=== PATIENT | male | born 1925 | race Caucasian/White ===

== ENCOUNTER → 2016-06-01 | Outpatient (CLI) | payer MEDICARE, BC | END | disposition home or self-care (01) | LOC: HKI 13:49 | PROVIDERS: ATTEND Orthopaedic Surgery | DX: M17.0 Bilateral primary osteoarthritis of knee (principal); Z85.118 Personal history of other malignant neoplasm of bronchus and lung | CPT/HCPCS: G0463 ==

== ENCOUNTER 2016-08-10 13:49 | Inpatient (IN) | payer MEDICARE, BC ==
[~2016-08-10] VITALS: Ht 162.6 cm; Wt 74.0 kg
[2016-08-16] VITALS (20 sets, daily range): BP systolic 118–142; BP diastolic 29–65; PULSE 54–82; RESP 9–20; Ht 162.6 cm; Wt 74.0 kg
[2016-08-16] MEDS ORDERED: CEFAZOLIN 2GM/50 ML (PMX) 50 ML X1 BEFORE INCISION IVPB SCH (07:00)
[2016-08-16] MEDS ORDERED: EXPAREL NOTE (BUPIVICAINE LIPOSOMAL) XX SCH (07:00)
[2016-08-16] MEDS ORDERED: CELECOXIB 400 MG PO X1 DOSE PO SCH (07:00)
[2016-08-16] MEDS ORDERED: LACTATED RINGER'S 1,000 ML IV SCH (07:00)
[2016-08-16] MEDS ORDERED: PAIN COCKTAIL-CEFUROXIME IRR ONE ×7 (07:00)
[2016-08-16] MEDS ORDERED: PREGABALIN 300 MG PO X1 PO SCH (07:00)
[2016-08-16] MEDS ORDERED: BUPIVACAINE LIPOSOME/PF 266 MG/20 ML VIAL INFIL SCH (07:00)
[2016-08-16] MEDS ORDERED: SOD CHLORIDE 0.9% IV SCH (07:00)
[2016-08-16] MEDS ORDERED: TRANEXAMIC ACID IV SCH (07:00)
[2016-08-16] MEDS ORDERED: oxyCODONE (CR) 10 MG TAB [oxyCONTIN] X1 DOSE PO SCH (07:00)
[2016-08-16] MEDS ORDERED: LIDOCAINE 2% (SDV) 5 ML INJ ONE (07:00)
[2016-08-16] MEDS ORDERED: TRANEXAMIC ACID 720 MG in SOD CHLORIDE 0.9% 100 ML IVPB SCH (07:00)
[2016-08-16] MEDS ORDERED: traMADOL 50 MG TAB X 1 DOSE PO SCH (07:00)
[2016-08-16] MEDS ORDERED: PRED12OP5 LEFT EYE (10:50)
[2016-08-16] MEDS ORDERED: ASPI-664 PO (10:51)
[2016-08-16] MEDS ORDERED: SIMV10TA PO (10:56)
[2016-08-16] MEDS ORDERED: LOSA1TAB19 PO (10:56)
[2016-08-16] MEDS ORDERED: DEXAMETHASONE 4 MG/ML 1 ML INJ ONE (11:39)
[2016-08-16] MEDS ORDERED: GLYCOPYRROLATE 0.4 MG INJ ONE (11:39)
[2016-08-16] MEDS ORDERED: ROCURONIUM 50 MG INJ ONE (11:39)
[2016-08-16] MEDS ORDERED: FENTAnyl 50 MCG/ML VIAL ONE (11:39)
[2016-08-16] MEDS ORDERED: MIDAZOLAM 1 MG/ML 2 ML INJ ONE (11:39)
[2016-08-16] MEDS ORDERED: CEFAZOLIN 1 GM INJ ONE (11:39)
[2016-08-16] MEDS ORDERED: PROPOFOL 20 ML ONE (11:39)
[2016-08-16] MEDS ORDERED: ONDANSETRON 4 MG INJ ONE (11:39)
[2016-08-16] MEDS ORDERED: NEOSTIGMINE 3 MG/3 ML SYRINGE ONE (11:39)
[2016-08-16] MEDS: traMADol 50 MG TAB PO SCH ×2 (12:00→20:49)
--- NOTE | 2016-08-16 13:06 | HPN ---
Date/Time of Note Date/Time of Note DATE: 08/16/16 TIME: 13:06 Interval H&P Admission Note Pt. seen H&P reviewed: No system changes No changes from H&P on 08/09/16 by EPIFANIO Martinez MD Aug 16, 2016 13:06
[2016-08-16] MEDS ORDERED: POLYMYXIN B 500000 UNIT INJ ONE (13:15)
[2016-08-16] MEDS ORDERED: ETOMIDATE 20 MG INJ ONE (14:16)
[2016-08-16] MEDS ORDERED: PROPOFOL 100 ML ONE (14:16)
[2016-08-16] MEDS ORDERED: EPHEDrine SULFATE 50 MG/5 ML SYG IV PRN (14:30)
[2016-08-16] MEDS ORDERED: DIPHENHYDRAMINE 50 MG INJ IV PRN (14:30)
[2016-08-16] MEDS ORDERED: ONDANSETRON 4 MG INJ IV PRN ×2 (14:30→16:00)
[2016-08-16] MEDS ORDERED: HYDROmorphONE (0.2 MG/ML) 10ML SYG IV PRN ×3 (14:30)
[2016-08-16] MEDS ORDERED: MIDAZOLAM 1 MG/ML 2 ML INJ IV PRN (14:30)
[2016-08-16] MEDS ORDERED: TRIMETHOBENZAMIDE 100 MG/ML VIAL IM PRN (14:30)
[2016-08-16] MEDS ORDERED: hydrALAzine 20 MG INJ IV PRN (14:30)
[2016-08-16] MEDS ORDERED: FENTAnyl 50 MCG/ML VIAL IV PRN ×3 (14:30)
[2016-08-16] MEDS ORDERED: LABETALOL HCL 20MG INJ IV PRN (14:30)
[2016-08-16] MEDS ORDERED: MEPERIDINE 25 MG INJ IV PRN (14:30)
[2016-08-16] MEDS ORDERED: BACITRACIN 50000 UNITS INJ IRR ONE (14:31)
[2016-08-16] MEDS: VANCOMYCIN 1 GM INJ ONE ×2 (14:31→14:32)
[2016-08-16] MEDS ORDERED: BACITRACIN 50000 UNITS INJ ONE (14:55)
[2016-08-16] MEDS ORDERED: NA PHOSPHATE/BIPHOS 133 ML ENEMA PR PRN (16:00)
[2016-08-16] MEDS ORDERED: ASPIRIN (EC) 325 MG TAB PO ONE (16:00)
[2016-08-16] MEDS ORDERED: DIPHENHYDRAMINE 25 MG CAP PO PRN (16:00)
[2016-08-16] MEDS ORDERED: HYDROmorphONE 1 MG/ML SYG IV PRN (16:00)
[2016-08-16] MEDS ORDERED: HYDROCODONE/APAP (5/325) TAB PO PRN ×2 (16:00)
[2016-08-16] MEDS ORDERED: BISACODYL 10 MG SUPP PR PRN (16:00)
[2016-08-16] MEDS ORDERED: MAGNESIUM HYDROXIDE 30ML CUP PO PRN (16:00)
[2016-08-16] MEDS ORDERED: NACL 0.9% 3 ML SYG IV SCH (16:00)
--- NOTE | 2016-08-16 16:06 | PN ---
Date/Time of Note Date/Time of Note DATE: 08/16/16 TIME: 16:05 Assessment/Plan Lines/Catheters IV Catheter Type (from Nrsg): Peripheral IV Assessment/Plan Assessment/Plan Stable in PACU, s/p left TKA -cont abx -pain meds prn -ASA/SCDs -OOB with PT -check AM labs -monitor drain -d/c chopra in the AM XR of the left knee is pending at this time Subjective 24 Hr Interval Summary Stable in PACU. Moving all extremities. Denies any pain. Exam/Review of Systems Vital Signs Vitals Vital Signs Date Time Temp Pulse Resp B/P Pulse Ox O2 Delivery O2 Flow Rate FiO2 08/16/16 11:44 98.3 54 18 142/63 Room Air Intake and Output 08/15/16 08/15/16 08/16/16 15:00 23:00 07:00 Intake Total 0 ml Balance 0 ml Exam Free Text/Dictation Hemovac: minimal Dressing dry Incision clean, dry, and intact without redness or drainage Thigh soft 5/5 Quadriceps, Tibialis Anterior, EHL, Gastroc, Soleus, Peroneals Normal sensation Palpable DT/PT, CR <2 sec No distal edema TENA REIS PA-C Aug 16, 2016 16:06
--- NOTE | 2016-08-16 16:08 | OPR ---
Date/Time of Note Date/Time of Note DATE: 08/16/16 TIME: 16:07 Operative Report Free Text/Dictation Dictation # [id number] Procedure Date: Aug 16, 2016 Preoperative Diagnosis Left Knee OA Postoperative Diagnosis Same Operation Performed Left TKA Surgeon: EPIFANIO HANSEN MD budget assistant: TENA REIS PA-C Anesthesia: general, spinal Anesthesiologist: Rodrigo Pennington M.D. Tourniquet Time: 71 min Estimated Blood Loss: 50 - 100 ml's Specimens Bone and soft tissue Tubes/Drains Hemovac x 1 Complications: None Pt Condition Post Procedure: stable Disposition: PACU EPIFANIO HANSEN MD Aug 16, 2016 16:08
--- NOTE | 2016-08-16 16:25 | OPR ---
DATE OF OPERATION: 08/16/2016 PREOPERATIVE DIAGNOSIS: Left knee osteoarthritis. POSTOPERATIVE DIAGNOSIS: Left knee osteoarthritis. OPERATION PERFORMED: Left total knee arthroplasty. SURGEON: Epifanio Hansen MD RAILROAD OPERATOR: ALFREDO Kingsley COMPONENTS USED: DePuy Attune size 5 femoral component, size 6 tibial baseplate, 8 mm polyethylene insert, 35 patellar button. ANESTHESIA: Spinal plus general endotracheal intubation, plus periarticular injection. ANESTHESIOLOGIST: Rodrigo Pennington MD TOURNIQUET TIME: 71 minutes. ESTIMATED BLOOD LOSS: 50 mL. INTRAVENOUS FLUIDS: 2 liters of crystalloid. SPECIMENS: Bone and soft tissue. DRAINS: Hemovac x1. COMPLICATIONS: None. DISPOSITION: The patient tolerated the procedure well and was taken to the recovery room in stable condition. INDICATIONS: The patient is an 89-year-old gentleman who has had progressive worsening pain in the left knee with radiographic evidence of severe osteoarthritis. He has failed nonsurgical means of t reatment to control his pain including activity modifications, pain medications and ambulatory blair t devices. Despite these measures, he has had worsening pain and I felt he would benefit from a tot al knee arthroplasty. The risks, benefits, and alternatives of the procedure were explained in detail to the patient. I e xplained the risks of the surgery to include but not be limited to, bleeding and possible need for b lood transfusion; infection; pain; stiffness; neurovascular injury with possible numbness, weakness, and/or paralysis anywhere from the knee down to the toes; fracture; instability; dislocation; wear and/or loosening of the prosthesis and possible need for future revision; blood clots; pulmonary emb olism; and anesthetic complications such as heart attack, stroke, GI bleed, pneumonia, and/or . Ample time was allowed for the patient to ask questions, all of which were addressed and answered. The patient understood the risks involved and wished to proceed. Informed consent was signed prior to the procedure. PROCEDURE: The patient's left knee was initialed with a marking pen in the preoperative area to timi ntify the correct operative site. The patient was brought to the operating room and transferred fro [facility] to the operating table where a spinal anesthetic was administered. The patien t was then anesthetized and intubated. A Beltre catheter was placed. A timeout was performed to con firm that the left leg was the correct operative site. The patient was given 2 g of Ancef within one hour prior to the procedure. A tourniquet was placed on the operative proximal thigh. The operati ve knee and lower extremity were prepped and draped in the usual sterile fashion. The operative low er extremity was elevated and exsanguinated with an Esmarch tourniquet. The proximal thigh tourniqu et was inflated to 300 mmHg. The knee was flexed. A midline incision was made and carried down through the subcutaneous tissue a nd fat with sharp dissection. Limited medial and lateral flaps were raised. A median parapatellar arthrotomy approach was performed. Synovial fluid was normal in color and consistency. The patella was everted and the knee flexed. There were severe tricompartmental osteoarthritic changes noted. A medial release was performed at the joint line to the midcoronal plane. The ACL and PCL and remn ants of the menisci were excised. The OrthAlign navigation device was then pinned into place on the distal femur and set to 0 degrees of varus/valgus and 3 degrees of flexion. The distal cutting blo ck was pinned into place and the oscillating saw was used to make the cut. The tibia was subluxed anteriorly. The tibial OrthAlign navigation device was then pinned into plac e such that the proximal portion of the guide was centered over the junction of the medial and middl e third of the tibial tubercle with the proximal probe placed at the posterior aspect of the ACL anu tprint. The guide was then set to 0 degrees varus/valgus and 3 degrees of posterior slope. The cut ting block was then pinned into place and the oscillating saw was used to make the cut. The tibia w as sized. The extension gap was checked and accommodated the 8 mm spacer block with the knee in ful l extension. There was no varus or valgus instability. At this point, the femur was sized with the posterior referencing guide. Two holes were drilled in 3 degrees of external rotation. The two holes were in line with the transepicondylar axis, perpendi cular to [place]'s line, and in line with the tibial cutoff jig brought up with the knee flexed 90 degrees and tensed with 2 lamina spreaders, suggesting the femoral rotation was correct. The four- in-one cutting block was pinned into place. The anterior and posterior cuts and chamfer cuts were m you with the oscillating saw. The flexion gap was checked and accommodated the 8 mm spacer block at 90 degrees. There was no varus or valgus instability, suggesting the flexion and extension gaps wer e now equal. The central box was cut out on the femur. The tibia was drilled and punched in proper rotation. Tri al components were placed into position with a trial insert. The patella was cut from 25 mm down to 16 mm and sized. Three holes were drilled and the trial button placed in position. With all the t rials now in place, the knee was taken through range of motion and came to full extension as evidenc ed by the fact that with the foot on my abdomen and axial loading, there was no tendency for the kne e to flex. The knee was able to be flexed to 125 degrees with good patellar tracking with no latera l tilt or subluxation. At this point, I was satisfied with the overall range of motion, stability, and patellar tracking. The trials were removed. The real components were opened. Two bags of cement were mixed, one with and one without premixed antibiotic. The knee was irrigated with antibiotic saline and sucked dry. Once the cement was in a doughy stage, the real components were cemented into place. The knee was held in full extension, and the patellar component was held with a patellar clamp. All excess cemen t was removed with curettes. As the cement was hardening, the synovial/capsular layer was infiltrat ed with a mixture of 150 mg of 0.5% bupivacaine, 8 mg of Duramorph, 300 mcg of epinephrine, 30 mg of Toradol, 100 mcg of clonidine, 750 mg of cefuroxime and 86 mL of normal saline, followed by an inje ction of 266 mg of liposomal bupivacaine. A Hemovac drain was placed in the deep portion of the wound and brought out the anterolateral thigh. Once the cement was completely hardened, the trial liner was removed, and the real insert was open ed. The tourniquet was let down, and there was good hemostasis. The knee was then irrigated with a mixture of Betadine/saline and then antibiotic saline with pulsatile lavage. The real insert was i mpacted into the tibia and reduced onto to the femur. The arthrotomy was closed with a few interrupted #1 Ethibond in a [id number] fashion, and then closed in a watertight fashion with a running #2 Stratafix suture. Knee flexion was checked against gravity and came to 125 degrees. The subcutaneous layer was irrigated and closed with 2-0 Stratafi x, and then 3-0 Vicryl and then lety on the skin. The wound was covered with an occlusive dressi ng, and secured with cast padding and a bias dressing. The drain was secured with 3-0 nylon. The sponge and needle counts were correct at the end of the case. The patient was then awakened, ex tubated, and taken to the recovery room in stable condition. Dictated By: EPIFANIO HANSEN MD EZ/NTS Conf#: [id number] DID#: [id number]
--- NOTE | 2016-08-16 16:55 | CONS ---
DATE OF ADMISSION: 08/16/2016 DATE OF CONSULTATION: 08/16/2016 Thank you very much for allowing me to evaluate the above patient who is an 89-year-old male who und erwent a left total knee arthroplasty. HISTORICAL EVENTS: As you well know, this patient has had progressive disabling pain involving his left knee and for this recommended the above surgical intervention. Postoperatively, in recovery, h e is comfortable without cough, wheezing, shortness of breath, nausea, vomiting, abdominal or chest pain. PAST MEDICAL HISTORY: 1. Includes PAC. He is undergoing cardiology valve preop including a nuclear treadmill that reveal ed no ischemia. 2. History of cancer of the right lung. 3. Hyperlipidemia. 4. Hypertension. 5. History of anemia. 6. Mitral valve regurgitation. 7. Hypogonadism. 8. History of prostate cancer with prostatectomy. 9. History of corneal transplant. MEDICATIONS: 1. Losartan/hydrochlorothiazide 50/12.5 per day. 2. Simvastatin 10. 3. Aspirin 81 daily. SOCIAL HISTORY: He is a , has 3 children. He never smoked. Denies drinking. PHYSICAL EXAMINATION: GENERAL: [place] male in no acute distress. VITAL SIGNS: BP 122/80, pulse 70, respirations are 20. He was afebrile. EYES: Extraocular muscles were full. NOSE, MOUTH, AND THROAT: Normal. NECK: Supple. There was no jugular venous distention, thyroid enlargement or adenopathy. Carotids 2+. LUNGS: Clear. HEART: Rhythm regular. ABDOMEN: Nontender. Liver and spleen were not palpable. No masses or tenderness were noted. EXTREMITIES: No edema. Calves nontender. NEUROLOGIC: No lateralizing motor weakness. IMPRESSION: 1. Stable postoperative left total knee replacement. 2. History of hypertension. We will continue angiotensin receptor coral without diuretic and mon itor blood pressure throughout. 3. Will evaluate telltale ductus signs and symptoms of thromboembolic disease despite appropriate d eep venous thrombosis prophylaxis. 4. Hyperlipidemia, continue his statin. Dictated By: RAVI MUÑOZ/NTS Conf#: [id number] DID#: [id number]
[2016-08-16 17:02] LABS: CREATININE 1.08 mg/dl (0.61-1.24); POTASSIUM 3.6 mmol/L (3.5-5.1)
[2016-08-16 17:03] LABS: CALCIUM 8.3 mg/dl (8.4-10.2)
[2016-08-16] MEDS: CEFAZOLIN 2 GM/50 ML (PMX) 50 ML IVPB SCH (17:05)
--- NOTE | 2016-08-16 17:25 | RADRPT ---
PROCEDURE: Left knee x-ray CLINICAL INDICATION: PACU Post Op TECHNIQUE: Two views of the left knee were obtained. COMPARISON: None FINDINGS: The patient is status post total knee replacement . There are postsurgical changes in the subcutane ous soft tissues. There is a surgical drain in place. There is normal mineralization. No acute fracture or dislocation is seen. The femoral and of the femoral tibial and patellar components of the prosthesis are anatomically ali gned. There are vascular calcifications in the superficial femoral artery geovanna IMPRESSION: 1. Postsurgical changes of the knee status post knee replacement. 2. 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 RPTAT:AAJJ Physician Denisse Date Time Electronically viewed and signed by Physician Denisse on 08/16/2016 17:25 /
[2016-08-16 18:17] LABS: ADD UMIC YES; URINE BILIRUBIN (Dip) NEGATIVE (NEGATIVE); URINE BLOOD (Dip) TRACE (NEGATIVE); URINE COLOR LT. YELLOW (YELLOW); URINE GLUCOSE (Dip) NEGATIVE (NEGATIVE); URINE KETONES (Dip) NEGATIVE (NEGATIVE); URINE LEUKOCYTE ESTERASE (Dip) NEGATIVE (NEGATIVE); URINE NITRITE (Dip) NEGATIVE (NEGATIVE); URINE TOTAL PROTEIN (Dip) NEGATIVE (NEGATIVE); URINE UROBILINOGEN (Dip) 0.2 E.U./dL (0.1-1.0)
[2016-08-16 18:26] LABS: BACTERIA,URINE RARE; SQUAMOUS EPITHELIAL CELL,UR FEW
[2016-08-16] MEDS ORDERED: TRANEXAMIC ACID 740 MG in SOD CHLORIDE 0.9% 100 ML IVPB ONE ×2 (19:00→22:00)
[2016-08-16] MEDS: DOCUSATE SODIUM 100 MG CAP PO SCH (20:48)
[2016-08-16] MEDS: PANTOPRAZOLE (EC) 40 MG TAB PO SCH (20:48)
[2016-08-16] MEDS: PREGABALIN 50 MG CAP PO SCH (20:49)
[2016-08-16] MEDS: LACTATED RINGER'S 1,000 ML IV SCH (20:50)
[2016-08-17] MEDS: CEFAZOLIN 2 GM/50 ML (PMX) 50 ML IVPB SCH ×2 (00:20→08:42)
[2016-08-17 01:10] VITALS: BP 117/58; RESP 20
--- NOTE | 2016-08-17 02:32 | RADRPT ---
PROCEDURE: Fluoroscopy services. CLINICAL INDICATION: Left knee pain. TECHNIQUE: Fluoroscopy services during placement of left knee arthroplasty. COMPARISON: Left leg plain film series dated 08/10/2016. FINDINGS: Fluoroscopy services during placement of left knee arthroplasty. 4 intraoperative spot films were o btained at intermediate stages during this procedure and demonstrate arthroplasty in place. No fluoroscopy time data is provided. IMPRESSION: Fluoroscopy services during placement of left knee arthroplasty. RPTAT: UU Physician Emmett Date Time Electronically viewed and signed by Physician Emmett on 08/17/2016 02:32 RS/
[2016-08-17 05:00] VITALS: BP 106/53; PULSE 67; RESP 17
[2016-08-17 05:28] LABS: HEMATOCRIT 34.1 % (42.0-52.0); HEMOGLOBIN 11.3 g/dl (14.0-18.0)
[2016-08-17 05:36] LABS: POTASSIUM 4.3 mmol/L (3.5-5.1)
[2016-08-17 05:38] LABS: CREATININE 1.19 mg/dl (0.61-1.24)
[2016-08-17 06:14] LABS: ADD UMIC YES; URINE BILIRUBIN (Dip) NEGATIVE (NEGATIVE); URINE BLOOD (Dip) 3+ (NEGATIVE); URINE COLOR YELLOW (YELLOW); URINE GLUCOSE (Dip) NEGATIVE (NEGATIVE); URINE KETONES (Dip) NEGATIVE (NEGATIVE); URINE LEUKOCYTE ESTERASE (Dip) NEGATIVE (NEGATIVE); URINE NITRITE (Dip) NEGATIVE (NEGATIVE); URINE TOTAL PROTEIN (Dip) 1+ (NEGATIVE); URINE UROBILINOGEN (Dip) 0.2 E.U./dL (0.1-1.0)
[2016-08-17] MEDS: LACTATED RINGER'S 1,000 ML IV SCH ×3 (06:26→15:14)
[2016-08-17] MEDS: traMADol 50 MG TAB PO SCH ×5 (06:30→23:21)
[2016-08-17] MEDS: PANTOPRAZOLE (EC) 40 MG TAB PO SCH ×2 (06:30→17:36)
[2016-08-17 06:51] LABS: BACTERIA,URINE FEW
[2016-08-17 08:29] VITALS: BP 111/55; RESP 18
[2016-08-17] MEDS: PREDNISOLONE ACET 0.12% 5 ML OPH LEFT EYE SCH (08:42)
[2016-08-17] MEDS: DOCUSATE SODIUM 100 MG CAP PO SCH ×2 (08:43→21:22)
[2016-08-17] MEDS: ASPIRIN (EC) 325 MG TAB PO SCH ×2 (08:43→21:22)
[2016-08-17] MEDS: CELECOXIB 200 MG CAP PO SCH (08:43)
[2016-08-17] MEDS: LOSARTAN 50 MG TAB PO SCH (08:44)
[2016-08-17] MEDS: PREGABALIN 50 MG CAP PO SCH ×2 (08:44→21:22)
--- NOTE | 2016-08-17 08:58 | PN ---
Date/Time of Note Date/Time of Note DATE: 08/17/16 TIME: 08:57 Assessment/Plan Lines/Catheters IV Catheter Type (from Nrsg): Peripheral IV Beltre in Place (from Nrsg): Yes Assessment/Plan Assessment/Plan Stable POD #1, s/p left TKA -d/c antibiotics -pain meds as needed -ASA/SCDs for DVT prophylaxis -OOB with PT -check AM labs -drain removed today -d/c planning. Will tentatively plan to go home upon discharge Subjective 24 Hr Interval Summary No acute overnight events. Denies any pain to his left knee. Did not start PT yesterday. VSS, afebrile. Would like to go home upon discharge. Exam/Review of Systems Vital Signs Vitals Vital Signs Date Time Temp Pulse Resp B/P Pulse Ox O2 Delivery O2 Flow Rate FiO2 08/17/16 08:29 97.3 61 18 111/55 98 08/17/16 05:00 Nasal Cannula 2.0 Intake and Output 08/16/16 08/16/16 08/17/16 15:00 23:00 07:00 Intake Total 2100 ml 200 ml 500 ml Output Total 280 ml 650 ml Balance 2100 ml -80 ml -150 ml Exam Free Text/Dictation Hemovac: 180cc Dressing dry Incision clean, dry, and intact without redness or drainage Thigh soft 5/5 Quadriceps, Tibialis Anterior, EHL, Gastroc, Soleus, Peroneals Normal sensation Palpable DT/PT, CR <2 sec No distal edema Results Result Diagram: 08/17/160 08/17/16419 TENA REIS PA-C Aug 17, 2016 08:58
[2016-08-17] MEDS ORDERED: HYDROCHLOROTHIAZIDE 12.5 MG CAP PO SCH (09:00)
[2016-08-17] MEDS ORDERED: ATORVASTATIN 10 MG TAB PO SCH ×2 (09:00→21:00)
--- NOTE | 2016-08-17 13:18 | PDOCDIS ---
Discharge Instructions DIAGNOSIS Discharge Diagnosis: s/p left TKA CONDITION Patient Condition: Good HOME CARE INSTRUCTIONS: Diet Instructions: RegularSpecial Diet: REGULAR ACTIVITY: Activity Restrictions: Slowly Increase Activity Rest between Activity Avoid heavy lifting Do not operate Machinery Do not operate Power Tool Avoid Heavy Housework Keep Limb Elevated FOLLOW UP/APPOINTMENTS Appointments follow up in the office on 08/27/16 OTHER ORDERS: Other Orders: S/P TKA Physical Therapy: Three times per week at home x 2 weeks Daily in Rehab/SNF WB STATUS: WBAT 1. Strengthening exercises for both upper and un-operated lower extremities. 2. Gait training with front wheeled walker 3. Active range of motion exercises to operative knee. 4. When not working on knee range of motion exercises, distal towel roll under operative ankle/distal calf to promote full extension. 5. DO NOT PUT ANYTHING BEHIND OPERATIVE KNEE!!! 6. Quadriceps and hamstring strengthening. 7. May switch to cane in contra lateral hand 6 weeks after surgery. 8. Physical Therapy can open case if nursing is not available. 9. Use Ice Machine as instructed from date of surgery while at rest 3X/day. 10. Patient requires mobile SCDs to reduce risk of developing DVT following TKA. Patient will use the mobile SCDs for 30 days postoperatively. Bathing assistance by home health aide twice weekly if Medicare patient. Occupational Therapy: Evaluation for assistive devices and ADL training. Wound Care: Keep incision dry & covered with Tegaderm until first visit with Dr. Dorsey Anticoagulation Orders: Enteric Coated Aspirin 325 mg po bid x 6 weeks from date of surgery Follow-up:Call for an appointment with Dr. Dorsey in 1 week after discharged from hospital at DME Orders: JOSH, 3-in-1 Commode, Polar ice machine, Mobile SCDs TENA REIS PA-C Aug 17, 2016 13:18
[2016-08-17] MEDS ORDERED: ASPI325T32 PO (13:21)
[2016-08-17] MEDS ORDERED: PREG50CA PO (13:21)
[2016-08-17] MEDS ORDERED: TRAM50TA2 PO (13:21)
[2016-08-17] MEDS ORDERED: PANT40TA4 PO (13:21)
[2016-08-17] MEDS ORDERED: HYDR-905 PO (13:21)
--- NOTE | 2016-08-17 13:48 | CONS ---
Date/Time of Note Date/Time of Note DATE: 08/17/16 TIME: 13:46 Assessment/Plan Assessment/Plan Additional Assessment/Plan 1. Doing well psot op left knee replacment. 2. Diff voiding, if unablel to void or residual is >300 will replace chopra. 3. BP is well controlled. 4. Labs are rev Consultation Date/Type/Reason Admit Date/Time Aug 16, 2016 at 10:00 Initial Consult Date Detailed Summary Respiratory: No shortness of breath Cardiovascular: No chest pain, No lightheadedness Gastrointestinal: no complaints Genitourinary: other (chopra removed and has not been able to void) Musculoskeletal: bone/joint pain (left knee pain is mild) Exam/Review of Systems Vital Signs Vitals Vital Signs Date Time Temp Pulse Resp B/P Pulse Ox O2 Delivery O2 Flow Rate FiO2 08/17/16 08:30 Nasal Cannula 2.0 08/17/16 08:29 97.3 61 18 111/55 98 Intake and Output 08/16/16 08/16/16 08/17/16 15:00 23:00 07:00 Intake Total 2100 ml 200 ml 500 ml Output Total 280 ml 650 ml Balance 2100 ml -80 ml -150 ml Exam Neck: No jvd Respiratory: clear to auscultation Cardiovascular: regular rate and rhythm Gastrointestinal: soft Extremities: No edema (and no calf tend) Results Result Diagram: 08/17/16 0420 08/17/16 0420 Results 24 hrs Laboratory Tests Test 08/16/16 16:24 08/16/16 18:00 08/17/16 04:20 08/17/16 05:00 Hemoglobin 12.0 L 11.3 L Hematocrit 36.0 L 34.1 L Sodium Level 136 134 L Potassium Level 3.6 4.3 Chloride Level 102 101 Carbon Dioxide Level 25 24 Anion Gap 13 13 Blood Urea Nitrogen 22 H 28 H Creatinine 1.08 1.19 Glucose Level 120 128 Calcium Level 8.3 L 8.0 L Urine Color LT. YELLOW YELLOW Urine Clarity CLEAR SLIGHTLY CLOUDY Urine pH 6.0 5.0 Urine Specific [place] 1.010 >=1.030 H Urine Ketones NEGATIVE NEGATIVE Urine Nitrite NEGATIVE NEGATIVE Urine Bilirubin NEGATIVE NEGATIVE Urine Urobilinogen 0.2 E.U./dL 0.2 E.U./dL Urine Leukocyte Esterase NEGATIVE NEGATIVE Urine Microscopic RBC 5-10 10-25 Urine Microscopic WBC 0-2 0-2 Urine Squamous Epithelial Cells FEW Urine Bacteria RARE FEW Urine Hemoglobin TRACE 3+ H Urine Glucose NEGATIVE NEGATIVE Urine Total Protein NEGATIVE 1+ H Medications Medications Current Medications Miscellaneous Information 1 ea NOTE XX ; Start 08/16/16 at 07:00; Stop 08/20/16 at 06:59 Prednisolone Acetate (Pred Mild 0.12%) 1 drop DAILY LEFT EYE Last administered on 08/17/16 08:42; Admin Dose 1 DROP; Start 08/17/16 at 09:00 Losartan Potassium 50 mg 50 mg DAILY PO Last administered on 08/17/16 08:44; Admin Dose 50 MG; Start 08/17/16 at 09:00 Lactated Ringer's (Lr) 1,000 ml @ 125 mls/hr Q8H IV Last administered on 06:26; Admin Dose 125 MLS/HR; Start 08/16/16 at 16:00 Celecoxib (Celebrex) 200 mg DAILY PO Last administered on 08/17/16 08:43; Admin Dose 200 MG; Start 08/17/16 at 09:00 Tramadol HCl (Ultram) 50 mg Q6 PO Last administered on 08/17/16 11:37; Admin Dose 50 MG; Start 08/16/16 at 12:00; Stop 08/19/16 at 11:59 Acetaminophen/ Hydrocodone Bitart ([place] (5/325)) 1 tab Q4H PRN PO PAIN LEVEL 1 -3; Start 08/16/16 at 16:00 Acetaminophen/ Hydrocodone Bitart ([place] (5/325)) 2 tab Q4H PRN PO PAIN LEVEL 4 -7; Start 08/16/16 at 16:00 Hydromorphone HCl (Dilaudid) 1 mg Q3H PRN IV PAIN LEVEL 8-10; Start 08/16/16 at 16:00 Ondansetron HCl (Zofran Inj) 4 mg Q6H PRN IV NAUSEA AND/OR VOMITING; Start at 16:00 Bisacodyl (Dulcolax Supp) 10 mg Q12H PRN AR CONSTIPATION; Start 08/16/16 at 16: 00 Magnesium Hydroxide (Milk Of Mag) 30 ml BID PRN PO CONSTIPATION; Start at 16:00 Sodium Biphosphate/ Sodium Phosphate (Fleet Enema) 133 ml DAILY PRN AR CONSTIPATION; Start 08/16/16 at 16:00 Docusate Sodium (Colace) 100 mg BID PO Last administered on 08/17/16 08:43; Admin Dose 100 MG; Start 08/16/16 at 21:00 Diphenhydramine HCl (Benadryl) 25 mg Q6H PRN PO PRURITUS; Start 08/16/16 at 16: 00 Aspirin (Ecotrin) 325 mg BID PO Last administered on 08/17/16 08:43; Admin Dose 325 MG; Start 08/17/16 at 09:00 Pantoprazole (Protonix Tab) 40 mg BID@06,18 PO Last administered on 08/17/16 06:30; Admin Dose 40 MG; Start 08/16/16 at 18:00 Pregabalin (Lyrica) 50 mg BID PO Last administered on 08/17/16 08:44; Admin Dose 50 MG; Start 08/16/16 at 21:00 Atorvastatin Calcium (Lipitor) 10 mg MoWeFr@21 PO ; Start 08/17/16 at 21:00 RAVI THORPE MD Aug 17, 2016 13:48
[2016-08-17 16:09] VITALS: BP 121/79; PULSE 52; RESP 14
[2016-08-17 20:04] VITALS: BP 140/63; RESP 20
[2016-08-17] MEDS: TAMSULOSIN (SR) 0.4 MG CAP PO SCH (22:00)
[2016-08-18 05:00] LABS: HEMATOCRIT 33.6 % (42.0-52.0); HEMOGLOBIN 11.2 g/dl (14.0-18.0)
[2016-08-18 05:21] LABS: CALCIUM 8.2 mg/dl (8.4-10.2); CREATININE 1.24 mg/dl (0.61-1.24)
[2016-08-18] MEDS: traMADol 50 MG TAB PO SCH ×3 (05:47→18:02)
[2016-08-18] MEDS: PANTOPRAZOLE (EC) 40 MG TAB PO SCH ×2 (05:47→18:02)
[2016-08-18 07:59] VITALS: BP 130/60; RESP 18
[2016-08-18] MEDS: LACTATED RINGER'S 1,000 ML IV SCH ×3 (08:00→16:00)
--- NOTE | 2016-08-18 09:10 | PN ---
Date/Time of Note Date/Time of Note DATE: 08/18/16 TIME: 09:09 Assessment/Plan Lines/Catheters IV Catheter Type (from Nrsg): Saline Lock Beltre in Place (from Nrsg): Yes Assessment/Plan Assessment/Plan Stable POD #2, s/p left TKA -pain meds as needed -ASA/SCDs for DVT prophylaxis -OOB with PT -check AM labs -dressing changed -will plan to discharge home tomorrow Subjective 24 Hr Interval Summary No acute overnight events. Denies any knee pain. Was up with therapy multiple times yesterday and is progressing well. VSS, afebrile. Will plan to go home tomorrow. Exam/Review of Systems Vital Signs Vitals Vital Signs Date Time Temp Pulse Resp B/P Pulse Ox O2 Delivery O2 Flow Rate FiO2 08/18/16 07:59 97.3 67 18 130/60 97 08/17/16 16:09 Room Air 08/17/16 08:30 2.0 Intake and Output 08/17/16 08/17/16 08/18/16 15:00 23:00 07:00 Intake Total 675 ml 1200 ml 480 ml Output Total 450 ml 1050 ml Balance 675 ml 750 ml -570 ml Exam Free Text/Dictation Dressing dry Incision clean, dry, and intact without redness or drainage Thigh soft 5/5 Quadriceps, Tibialis Anterior, EHL, Gastroc, Soleus, Peroneals Normal sensation Palpable DT/PT, CR <2 sec No distal edema Results Result Diagram: 08/18/16 0435 08/18/16 0432 TENA REIS PA-C Aug 18, 2016 09:10
[2016-08-18] MEDS: PREDNISOLONE ACET 0.12% 5 ML OPH LEFT EYE SCH (09:12)
[2016-08-18] MEDS: ASPIRIN (EC) 325 MG TAB PO SCH ×2 (09:12→20:59)
[2016-08-18] MEDS: DOCUSATE SODIUM 100 MG CAP PO SCH ×2 (09:13→20:59)
[2016-08-18] MEDS: CELECOXIB 200 MG CAP PO SCH (09:16)
[2016-08-18] MEDS: LOSARTAN 50 MG TAB PO SCH (09:17)
[2016-08-18] MEDS: PREGABALIN 50 MG CAP PO SCH ×2 (09:17→20:59)
--- NOTE | 2016-08-18 10:55 | CONS ---
Date/Time of Note Date/Time of Note DATE: 08/18/16 TIME: 10:54 Assessment/Plan Assessment/Plan Additional Assessment/Plan Post L Knee - stable Urinary Retention - resolved; patient urinating without chopra this AM Stable for d/c tomorrow from medical standpoint Consultation Date/Type/Reason Admit Date/Time Aug 16, 2016 at 10:00 Initial Consult Date 24 HR Interval Summary Constitutional: improved, no complaints Exam/Review of Systems Vital Signs Vitals Vital Signs Date Time Temp Pulse Resp B/P Pulse Ox O2 Delivery O2 Flow Rate FiO2 08/18/16 07:59 97.3 67 18 130/60 97 08/17/16 16:09 Room Air 08/17/16 08:30 2.0 Intake and Output 08/17/16 08/17/16 08/18/16 15:00 23:00 07:00 Intake Total 675 ml 1200 ml 480 ml Output Total 450 ml 1050 ml Balance 675 ml 750 ml -570 ml Exam Constitutional: alert, oriented, well developed Respiratory: clear to auscultation, normal air movement Cardiovascular: nl pulses, regular rate and rhythm Musculoskeletal: other (L knee with bandage; no evidence of infection or bleeding; c/d/i) Results Result Diagram: 08/18/16 0435 08/18/16 0432 Results 24 hrs Laboratory Tests Test 08/18/16 04:32 08/18/16 04:35 Sodium Level 133 L Potassium Level 5.0 Chloride Level 101 Carbon Dioxide Level 31 Anion Gap 6 L Blood Urea Nitrogen 30 H Creatinine 1.24 Glucose Level 103 Calcium Level 8.2 L Hemoglobin 11.2 L Hematocrit 33.6 L Medications Medications Current Medications Miscellaneous Information 1 ea NOTE XX ; Start 08/16/16 at 07:00; Stop 08/20/16 at 06:59 Prednisolone Acetate (Pred Mild 0.12%) 1 drop DAILY LEFT EYE Last administered on 08/18/16 09:12; Admin Dose 1 DROP; Start 08/17/16 at 09:00 Losartan Potassium 50 mg 50 mg DAILY PO Last administered on 08/18/16 09:17; Admin Dose 50 MG; Start 08/17/16 at 09:00 Lactated Ringer's (Lr) 1,000 ml @ 125 mls/hr Q8H IV Last administered on 06:26; Admin Dose 125 MLS/HR; Start 08/16/16 at 16:00 Celecoxib (Celebrex) 200 mg DAILY PO Last administered on 08/18/16 09:16; Admin Dose 200 MG; Start 08/17/16 at 09:00 Tramadol HCl (Ultram) 50 mg Q6 PO Last administered on 08/18/16 05:47; Admin Dose 50 MG; Start 08/16/16 at 12:00; Stop 08/19/16 at 11:59 Acetaminophen/ Hydrocodone Bitart ([place] (5/325)) 1 tab Q4H PRN PO PAIN LEVEL 1 -3; Start 08/16/16 at 16:00 Acetaminophen/ Hydrocodone Bitart ([place] (5/325)) 2 tab Q4H PRN PO PAIN LEVEL 4 -7; Start 08/16/16 at 16:00 Hydromorphone HCl (Dilaudid) 1 mg Q3H PRN IV PAIN LEVEL 8-10; Start 08/16/16 at 16:00 Ondansetron HCl (Zofran Inj) 4 mg Q6H PRN IV NAUSEA AND/OR VOMITING; Start at 16:00 Bisacodyl (Dulcolax Supp) 10 mg Q12H PRN MS CONSTIPATION; Start 08/16/16 at 16: 00 Magnesium Hydroxide (Milk Of Mag) 30 ml BID PRN PO CONSTIPATION; Start at 16:00 Sodium Biphosphate/ Sodium Phosphate (Fleet Enema) 133 ml DAILY PRN MS CONSTIPATION; Start 08/16/16 at 16:00 Docusate Sodium (Colace) 100 mg BID PO Last administered on 08/18/16 09:13; Admin Dose 100 MG; Start 08/16/16 at 21:00 Diphenhydramine HCl (Benadryl) 25 mg Q6H PRN PO PRURITUS; Start 08/16/16 at 16: 00 Aspirin (Ecotrin) 325 mg BID PO Last administered on 08/18/16 09:12; Admin Dose 325 MG; Start 08/17/16 at 09:00 Pantoprazole (Protonix Tab) 40 mg BID@06,18 PO Last administered on 08/18/16 05:47; Admin Dose 40 MG; Start 08/16/16 at 18:00 Pregabalin (Lyrica) 50 mg BID PO Last administered on 08/18/16 09:17; Admin Dose 50 MG; Start 08/16/16 at 21:00 Atorvastatin Calcium (Lipitor) 10 mg MoWeFr@ PO Last administered on 21:22; Admin Dose 10 MG; Start 08/17/16 at 21:00 Tamsulosin HCl (Flomax) 0.4 mg HS PO ; Start 08/17/16 at 22:00 RAY JACKSON MD Aug 18, 2016 10:55
[2016-08-18 19:57] VITALS: BP 137/60; RESP 18
[2016-08-18] MEDS: TAMSULOSIN (SR) 0.4 MG CAP PO SCH (20:59)
[2016-08-19] MEDS: PANTOPRAZOLE (EC) 40 MG TAB PO SCH (05:29)
[2016-08-19] MEDS: traMADol 50 MG TAB PO SCH ×2 (05:29)
[2016-08-19] MEDS: LACTATED RINGER'S 1,000 ML IV SCH ×2 (08:00)
[2016-08-19 08:08] LABS: HEMATOCRIT 35.8 % (42.0-52.0); HEMOGLOBIN 11.7 g/dl (14.0-18.0)
[2016-08-19 08:20] LABS: POTASSIUM 4.6 mmol/L (3.5-5.1)
[2016-08-19 08:22] LABS: CREATININE 1.13 mg/dl (0.61-1.24)
[2016-08-19 08:23] LABS: CALCIUM 8.3 mg/dl (8.4-10.2)
--- NOTE | 2016-08-19 08:24 | PN ---
Date/Time of Note Date/Time of Note DATE: 08/19/16 TIME: 08:23 Assessment/Plan Lines/Catheters IV Catheter Type (from Nrsg): Saline Lock Beltre in Place (from Nrsg): No Assessment/Plan Assessment/Plan Stable POD #3, s/p left TKA -pain meds as needed -ASA/SCDs for DVT prophylaxis -OOB with PT -dressing changed -discharge home today -follow up in the office in 1 week Subjective 24 Hr Interval Summary No acute overnight events. Walked over 300 feet with physical therapy. Denies any knee pain. VSS, afebrile. Will plan to go home today. Exam/Review of Systems Vital Signs Vitals Vital Signs Date Time Temp Pulse Resp B/P Pulse Ox O2 Delivery O2 Flow Rate FiO2 08/18/16 19:57 97.8 72 18 137/60 96 08/17/16 16:09 Room Air 08/17/16 08:30 2.0 Intake and Output 08/18/16 08/18/16 08/19/16 15:00 23:00 07:00 Intake Total 880 ml 720 ml Output Total 1600 ml 1500 ml Balance -720 ml -780 ml Exam Free Text/Dictation Dressing dry Incision clean, dry, and intact without redness or drainage Thigh soft 5/5 Quadriceps, Tibialis Anterior, EHL, Gastroc, Soleus, Peroneals Normal sensation Palpable DT/PT, CR <2 sec No distal edema Results Result Diagram: 08/19/16 0725 08/18/16 0432 TENA REIS PA-C Aug 19, 2016 08:24
[2016-08-19] MEDS: DOCUSATE SODIUM 100 MG CAP PO SCH (08:25)
[2016-08-19] MEDS: PREDNISOLONE ACET 0.12% 5 ML OPH LEFT EYE SCH (08:25)
[2016-08-19] MEDS: PREGABALIN 50 MG CAP PO SCH (08:25)
[2016-08-19] MEDS: CELECOXIB 200 MG CAP PO SCH (08:26)
[2016-08-19] MEDS: ASPIRIN (EC) 325 MG TAB PO SCH (08:26)
[2016-08-19] MEDS: LOSARTAN 50 MG TAB PO SCH (08:26)
[2016-08-19 08:51] VITALS: BP 147/67; RESP 18
--- NOTE | 2016-08-19 18:16 | DS ---
DATE OF ADMISSION: 08/16/2016 DATE OF DISCHARGE: 08/19/2016 CONDITION ON DISCHARGE: Stable. ADMITTING DIAGNOSIS: Left knee osteoarthritis. DISCHARGE DIAGNOSIS: Status post left total knee arthroplasty. PROCEDURE PERFORMED: Left total knee arthroplasty. HOSPITAL COURSE: This is an 89-year-old male who was seen in clinic complaining of left knee pain. He had undergone conservative modalities unsuccessfully and it was thought he would benefit from a left total knee arthroplasty. On 08/16/2016, the patient was admitted and taken to the operating room where he underwent a left total knee arthroplasty. There were no intraoperative complications. The patient tolerated the procedure well. He was taken to the recovery room in stable condition. Pain was well controlled with oral pain medication. He was started on aspirin and SCDs for DVT prophylaxis. He remained hemodynamically stable and neurovascularly intact throughout his hospital stay. He began physical therapy on postoperative day 1 and continued to make good progress. Ultimately stable for discharge on postoperative day 3. Prior to discharge, the incision was inspected and noted to be clean, dry, and intact. Dressing changes were done prior to the patient going home. LABORATORY ANALYSIS: Hemoglobin 11.7, hematocrit 35.8. Chemistry panel shows slightly elevated BUN, but was otherwise within normal limits. DISCHARGE MEDICATIONS: 1. [place] 7.5/325 mg. 2. Tramadol 50 mg. 3. Aspirin 325 mg. 4. Protonix 40 mg. 5. Lyrica 50 mg. 6. Additionally, the patient is to resume all of his normal home medication. DISCHARGE INSTRUCTIONS: The patient will be discharged home in stable condition. He is to resume a normal diet. Activity includes weightbearing as tolerated on the left lower extremity. He will begin physical therapy with home health. He will be discharged home on the medications noted above and is to resume all of his normal home medications. The patient is to call the office or go to the emergency room for any concerns including increased redness , swelling, drainage, fever, or any concern regarding the operation or site of incision. FOLLOWUP: The patient is to follow up in the office on 08/27/2016. Dictated By: TENA FUENTES for EPIFANIO TRINIDAD/NTS Conf#: [id number] DID#: [id number] CC: EPIFANIO HANSEN MD;*EndCC* MTDD
== END 2016-08-19 16:15 | disposition home health service (06) | DRG 470 ==
LOC: REC 08-16 10:00 → MS1 08-16 18:20
PROVIDERS: ADMIT Orthopaedic Surgery; ATTEND Orthopaedic Surgery
PROC: 0SRD0J9 Replacement of Left Knee Joint with Synthetic Substitute, Cemented, Open Approach (ICD-10-PCS; principal; 2016-08-16 13:00)
DX: M17.12 Unilateral primary osteoarthritis, left knee (principal); I10 Essential (primary) hypertension; E78.5 Hyperlipidemia, unspecified; I34.0 Nonrheumatic mitral (valve) insufficiency; R33.9 Retention of urine, unspecified; Z79.82 Long term (current) use of aspirin
CPT/HCPCS: 73560; 80048; 81001; 81003; 85014; 85018; 87081; 87086; 88304; 88311; 97116; 97163; 97530; C1776; J0690; J1100; J2250; J2405; J2710; J3010; J3370; J7120

== ENCOUNTER → 2016-08-10 | Outpatient (CLI) | payer MEDICARE, BC ==
--- NOTE | 2016-08-10 12:12 | RADRPT ---
PROCEDURE: XR Chest. CLINICAL INDICATION: Preoperative evaluation. TECHNIQUE: Chest x-ray, single view. COMPARISON: None. FINDINGS: The cardiomediastinal silhouette is normal. The lungs are clear. Skeletal structures and upper abd omen are unremarkable aside from degenerative changes of the spine. IMPRESSION: No radiographic evidence of acute cardiopulmonary pathology. RPTAT: HLST .Chelsey Chamberlain MD, MD Date Time Electronically viewed and signed by .Chelsey Chamberlain MD, on 08/10/2016 12:11 .T/
--- NOTE | 2016-08-13 15:10 | RADRPT ---
PROCEDURE: Limited x-ray of both lower extremities. 03/10/2014. 1012 hours. CLINICAL INDICATION: Bilateral leg pain. TECHNIQUE: Single frontal view of both lower extremities was obtained from the hips to the calves. COMPARISON: Plain radiographs of the knees from 10/07/2015 FINDINGS: 1004 may of bilateral knee joints is again noted. There is normal osseous mineralization. There are severe degenerative changes involving the left greater than right knees including joint sp blanca narrowing and osteophytes involving primarily the medial compartment. Subchondral sclerosis is noted in the medial compartment of the left knee joint. Soft tissue structures are unremarkable. IMPRESSION: Stable severe degenerative changes of the left greater than right knees involving primarily the medi al compartments. Stable bilateral valgus deformity. RPTAT: EE Physician Chris Date Time Electronically viewed and signed by Physician Chris on 08/13/2016 15:10 RA/
== END | disposition home or self-care (01) ==
LOC: HKI 10:01
PROVIDERS: ATTEND Orthopaedic Surgery
DX: M25.562 Pain in left knee (principal); M25.561 Pain in right knee; M17.0 Bilateral primary osteoarthritis of knee
CPT/HCPCS: 71010; 77073; G0463

== ENCOUNTER → 2016-08-27 | Outpatient (CLI) | payer MEDICARE, BC ==
[~2016-08-27] MED LIST: ASPI325T32 PO; HYDR-905 PO; LOSA1TAB19 PO; PANT40TA4 PO; PRED12OP5 LEFT EYE; PREG50CA PO; SIMV10TA PO; TRAM50TA2 PO
--- NOTE | 2016-08-27 12:21 | HKNOTE ---
DATE OF SERVICE: 08/27/2016 INTERVAL HISTORY: The patient presents today for his first postoperative evaluation. He is 10 days status post left total knee arthroplasty. He is doing well overall. He denies any knee pain and h as been progressing very well. He has been having some oral irritation secondary to Lyrica. He den ies any fevers or chills. He is working with home health physical therapy. He presents today for h is first postoperative evaluation. PHYSICAL EXAMINATION: GENERAL: Today, he is alert and oriented x4, and in no acute distress. He is ambulating with a wal ker, but does not need any assistive device. EXTREMITIES: Exam of the incision demonstrates it to be clean, dry, and intact. It is well healing . There is no erythema or warmth noted. There is some mild swelling around the left knee as well a s the lower extremity. Homans sign is negative. Range of motion is 0 to 105 degrees. Compartments are soft. He is neurovascularly intact distally. IMAGING: X-rays of the left knee were obtained today and reviewed by me. They demonstrate good colby tomic alignment with no fracture or dislocation identified. ASSESSMENT: Ten days status post left total knee arthroplasty, doing well. PLAN: The lety were removed today and Steri-Strips were applied. He is to continue with home he alth physical therapy and transition to an outpatient physical therapy program. We advised him to e levate the extremity above the level his heart to decrease swelling. However, if symptom worsen, he will call and we will obtain an ultrasound at that time. He is to continue aspirin twice daily for 6 weeks for DVT prophylaxis. We will see him back in 4 weeks for a repeat evaluation. Dictated By: TENA FUENTES for EPIFANIO TRINIDAD/BLAYNE Conf#: [id number] DID#: [id number]
--- NOTE | 2016-08-27 16:45 | RADRPT ---
PROCEDURE: XR Left Knee. CLINICAL INDICATION: Left knee pain. Postop. TECHNIQUE: Two views. Frontal and lateral. COMPARISON: 09/16/2015. FINDINGS: There is no fracture or dislocation. Vascular calcifications are present consistent with atherosclerosis. There is a total left knee arthroplasty which appears satisfactory. There is no lytic or blastic lesion. There is no joint effusion. IMPRESSION: 1. Satisfactory postoperative appearance of the left knee. RPTAT: QQ .Hal Cowan MD, MD Date Time Electronically viewed and signed by .Hal Coawn MD, MD on 08/27/2016 16:45 .R/
== END | disposition home or self-care (01) ==
LOC: HKI 09:54
PROVIDERS: ATTEND Orthopaedic Surgery
DX: Z47.1 Aftercare following joint replacement surgery (principal); Z96.652 Presence of left artificial knee joint

== ENCOUNTER → 2016-09-24 | Outpatient (CLI) | payer MEDICARE, BC | END | disposition home or self-care (01) | LOC: HKI 10:02 | PROVIDERS: ATTEND Orthopaedic Surgery | DX: Z47.1 Aftercare following joint replacement surgery (principal); M17.12 Unilateral primary osteoarthritis, left knee; Z96.652 Presence of left artificial knee joint ==

== ENCOUNTER → 2016-11-26 | Outpatient (CLI) | payer MEDICARE, BC ==
--- NOTE | 2016-11-26 22:10 | RADRPT ---
PROCEDURE: Left knee radiographs. CLINICAL INDICATION: Left knee pain. Postop. TECHNIQUE: Three views. Weight bearing. Frontal, lateral, and patellar view. COMPARISON: 08/27/2016. FINDINGS: There is no fracture or dislocation. Vascular calcifications are present consistent with atherosclerosis. There is a total left knee arthroplasty which appears satisfactory. There is no lytic or blastic lesion. There is no joint effusion. IMPRESSION: 1. Satisfactory postoperative appearance of the left knee. 2. Atherosclerosis. RPTAT: QQ .Hal Cowan MD, MD Date Time Electronically viewed and signed by .Hal Cowan MD, MD on 11/26/2016 22:10 .R/
== END | disposition home or self-care (01) ==
LOC: HKI 09:55
PROVIDERS: ATTEND Orthopaedic Surgery
DX: M25.561 Pain in right knee (principal); M17.11 Unilateral primary osteoarthritis, right knee; Z96.652 Presence of left artificial knee joint
CPT/HCPCS: 73562; G0463